=== PATIENT | female | born 1960 ===

== ENCOUNTER 2024-04-23 09:23 | Outpatient (CLI) | payer MEDICAID ==
[2024-04-23 18:49] LABS: BASOPHILS # (AUTO) 0.1 10^3/uL (0.0-0.1); BASOPHILS % (AUTO) 0.9 %; EOSINOPHILS # (AUTO) 0.2 10^3/uL (0.0-0.7); EOSINOPHILS % (AUTO) 2.8 %; HCT - HEMATOCRIT 44.5 % (37.0-47.0); HGB - HEMOGLOBIN 14.4 g/dL (12.0-16.0); LYMPHOCYTES # (AUTO) 3.4 10^3/uL (1.5-3.5); LYMPHOCYTES % (AUTO) 48.8 %; MEAN CORPUSCULAR HEMOGLOBIN 29.7 pg (27.0-31.0); MEAN CORPUSCULAR HGB CONC 32.4 g/dL (32.0-36.0); MEAN CORPUSCULAR VOLUME 91.8 fL (81.0-99.0); MEAN PLATELET VOLUME 10.8 fL (7.9-10.8); MONOCYTES # (AUTO) 0.5 10^3/uL (0.0-1.0); MONOCYTES % (AUTO) 6.8 %; NEUTROPHILS # (AUTO) 2.9 10^3/uL (1.5-6.6); NEUTROPHILS % (AUTO) 40.6 %; PLT - PLATELET COUNT 221 10^3/uL (130-450); RED BLOOD COUNT 4.85 10^6/uL (4.20-5.40); RED CELL DISTRIBUTION WIDTH 13.1 % (12.0-15.0)
[2024-04-23 19:06] LABS: CHOL/HDL RATIO 2.5 (<4.4); CHOLESTEROL 98 mg/dL; HDL CHOLESTEROL 39 mg/dL; LDL CHOLESTEROL,CALCULATED 45 mg/dL; LDL/HDL RATIO 1.2 (<4.4); TRIGLYCERIDES 71 mg/dL (48-352); VLDL CHOLESTEROL 14 mg/dL
[2024-04-23 19:09] LABS: THYROID STIMULATING HORMONE 1.96 uIU/mL (0.34-5.60)
[2024-04-23 20:50] LABS: ESTIMATED AVERAGE GLUCOSE 123 mg/dL (70-100); HEMOGLOBIN A1c% 5.9 % (4.27-6.07)
== END 2024-04-23 09:24 | disposition home or self-care (01) ==
LOC: LAB.N 09:23
PROVIDERS: ATTEND Nurse Practitioner Family
DX: I10 Essential (primary) hypertension (principal); E78.5 Hyperlipidemia, unspecified; R73.03 Prediabetes
CPT/HCPCS: 36415; 80061; 83036; 83721; 84443; 85025

== ENCOUNTER 2024-04-24 13:16 | Outpatient (CLI) | payer MEDICAID ==
--- NOTE | 2024-04-24 17:45 | Ultrasound Report ---
PROCEDURE: Soft Tissue Head or Neck INDICATIONS: Goiter TECHNIQUE: Real-time scanning was performed of the thyroid gland, with image documentation. COMPARISON: None FINDINGS: Right: Thyroid lobe measures 6.2 x 3.5 x 4.3 cm. Left: Thyroid lobe measures 3.8 x 1 x 1.3 cm Isthmus: 0.3 cm thick. Echotexture: Heterogeneous. Nodule number: One Location: Right superior Size: 2.4 x 2 x 1.5 cm. Composition: Cystic / almost completely cystic (0 points). Echogenicity: Anechoic (0 points). Shape: wider than tall (0 points). Margins: Smooth (0 points). Echogenic foci: None (0 points). Total points: 0 ACR TI-RADS category: TI-RADS 1: Benign. Nodule number: Two Location: Right mid Size: 2 x 2.5 x 3 cm. Composition: Solid (2 points). Echogenicity: Hypoechoic (2 points). Shape: wider than tall (0 points). Margins: Lobulated / Irregular (2 points). Echogenic foci: None (0 points). Total points: 6 ACR TI-RADS category: TI-RADS 4: Moderately suspicious. Nodule number: Three Location: Location Size: 2.3 x 2.3 x 2.3 cm. Composition: Solid (2 points). Echogenicity: Very hypoechoic (3 points). Shape: wider than tall (0 points). Margins: Lobulated / Irregular (2 points). Echogenic foci: None (0 points). Total points: 7 ACR TI-RADS category: TI-RADS 5: Highly suspicious. IMPRESSION: 1.Thyroid gland is heterogeneous, notably in the right lobe which is enlarged with multiple nodules. 2.Nodule 2 is TIRADS-4 and meets criteria for FNA. 3.Nodule 3 is TIRADS-5 and meets criteria for FNA. ACR TI-RADS definitions and recommendations: TI-RADS 1 (benign): 0 points. FNA not needed. TI-RADS 2 (not suspicious): 2 points. FNA not needed. TI-RADS 3 (mildly suspicious): 3 points. "FNA if 2.5 cm or larger, follow up if 1.5 cm or larger (at 1, 3, and 5 years). TI-RADS 4 (moderately suspicious): 4-6 points. "FNA if 1.5 cm or larger, follow up if 1 cm or larger (at 1, 2, 3, and 5 years). TI-RADS 5 (highly suspicious): 7 points or more. "FNA if 1 cm or larger, follow up if 0.5 cm or larger (every year for 5 years). Reviewed by: Samina Skinner MD on 04/24/2024 5:44 PM PDT Approved by: Samina Skinner MD on 04/24/2024 5:44 PM PDT Station ID: [id number]
== END 2024-04-24 13:17 | disposition home or self-care (01) ==
LOC: DI 13:16
PROVIDERS: ATTEND Nurse Practitioner Family
DX: E04.2 Nontoxic multinodular goiter (principal)
CPT/HCPCS: 36415; 80061; 83036; 83721; 84443; 85025